=== PATIENT | female | born 1990 | race Caucasian/White ===

== ENCOUNTER 2016-07-29 16:25 | Emergency (ER) | payer MEDICAID ==
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
[2016-07-29 18:19] VITALS: BP 155/101; PULSE 78; O2SAT 98
== END 2016-07-29 18:23 | disposition home or self-care (01) ==
LOC: ED 16:25
DX: M79.1 Myalgia (principal); V49.59XD Passenger injured in collision with other motor vehicles in traffic accident, subsequent encounter
CPT/HCPCS: 99282

== ENCOUNTER 2020-01-16 09:15 | Day surgery (SDC) | payer BC ==
[~2020-01-16 09:15] MED LIST: DIPRIVAN 200 MG/20 ML IV ONE; Ketamine HCl 50 MG/ML ONE
[2020-01-16] MEDS ORDERED: Depo-Medrol 40 MG/ML IM ONE (09:16)
[2020-01-16] MEDS ORDERED: BUPIVACAINE 0.5% VIAL IJ ONE (09:16)
--- NOTE | 2020-01-16 12:10 | XRAY ---
Indication: Left hip injection. Intraoperative fluoroscopy provided for 11 seconds. Single digital spot image submitted for interpretation demonstrates needle tip projecting lateral to the left femur neck. Small amount of contrast injected for needle tip placement. Correlate with intraoperative findings/report.
--- NOTE | 2020-01-16 12:40 | XRAY ---
11 seconds fluoroscopy time in surgery for intra-articular injection of the left hip
[2020-01-16] MEDS ORDERED: Lactated Ringers 1,000 ML IV ONE (13:44)
== END 2020-01-16 11:32 | disposition home or self-care (01) ==
LOC: SDC-PAIN 09:15
PROVIDERS: ATTEND Psychiatry & Neurology Pain Medicine
DX: M16.12 Unilateral primary osteoarthritis, left hip (principal); F41.8 Other specified anxiety disorders; Z79.899 Other long term (current) drug therapy
CPT/HCPCS: 73501; 77002; 84703; J1030; J2704

== ENCOUNTER 2020-02-13 13:56 | Day surgery (SDC) | payer BC ==
[2020-02-13] MEDS ORDERED: BUPIVACAINE 0.5% VIAL IJ ONE (13:57)
[2020-02-13] MEDS ORDERED: Depo-Medrol 40 MG/ML IM ONE (13:57)
[2020-02-13] MEDS ORDERED: DIPRIVAN 200 MG/20 ML IV ONE (15:21)
[2020-02-13] MEDS ORDERED: Ketamine HCl 50 MG/ML ONE (15:21)
--- NOTE | 2020-02-13 16:41 | XRAY ---
9 seconds fluoroscopy time in surgery for left intra-articular hip injection.
--- NOTE | 2020-02-13 16:41 | XRAY ---
Indication: Left SI joint injection. Intraoperative fluoroscopy was provided for 7 seconds. 2 digital spot images submitted for interpretation demonstrates posterior needle tip projecting over the inferior left SI joint. Correlate with intraoperative findings/report.
--- NOTE | 2020-02-13 16:41 | XRAY ---
7 seconds fluoroscopy time in surgery for left SI joint injection.
--- NOTE | 2020-02-13 16:49 | XRAY ---
Indication: Right hip injection. Intraoperative fluoroscopy was provided for 9 seconds. Single digital spot image submitted for interpretation demonstrates needle tip projecting just lateral to the right femur head. Small amount of contrast injected for needle tip placement. Correlate with intraoperative findings/report.
[2020-02-13] MEDS ORDERED: Lactated Ringers 1,000 ML IV ONE (16:51)
== END 2020-02-13 15:50 | disposition home or self-care (01) ==
LOC: SDC-PAIN 13:56
PROVIDERS: ATTEND Psychiatry & Neurology Pain Medicine
DX: M46.1 Sacroiliitis, not elsewhere classified (principal); M16.12 Unilateral primary osteoarthritis, left hip; Z79.899 Other long term (current) drug therapy
CPT/HCPCS: 20610; 27096; 72020; 73501; 77002; 84703; J1030; J2704; Q9966; G0260

== ENCOUNTER 2020-07-23 10:23 | Day surgery (SDC) | payer BC, OTHER ==
[2020-07-23] MEDS ORDERED: BUPIVACAINE 0.5% VIAL IJ ONE (10:24)
[2020-07-23] MEDS ORDERED: Depo-Medrol 40 MG/ML IM ONE (10:24)
[2020-07-23] MEDS ORDERED: DIPRIVAN 200 MG/20 ML IV ONE (12:44)
--- NOTE | 2020-07-23 13:19 | XRAY ---
Indication: Left SI joint injection. Intraoperative fluoroscopy provided for 16 seconds. 2 digital spot images submitted for interpretation demonstrates posterior needle tip projecting over the inferior left SI joint. Correlate with intraoperative findings/report.
--- NOTE | 2020-07-23 13:19 | XRAY ---
Indication: Left hip injection. Intraoperative fluoroscopy provided for 18 seconds. 2 digital spot images obtained prone submitted for interpretation demonstrates needle tip just lateral to the left femur head. Small amount of contrast injected for needle tip placement. Correlate with intraoperative findings/report.
--- NOTE | 2020-07-23 13:41 | XRAY ---
18 seconds fluoroscopy time in surgery for intra-articular injection of the left hip.
--- NOTE | 2020-07-23 13:41 | XRAY ---
16 seconds fluoroscopy time in surgery for injection of the left SI joint.
[2020-07-23] MEDS ORDERED: Lactated Ringers 1,000 ML IV ONE (16:11)
== END 2020-07-23 13:10 | disposition home or self-care (01) ==
LOC: SDC-PAIN 10:23
PROVIDERS: ATTEND Psychiatry & Neurology Pain Medicine
DX: M46.1 Sacroiliitis, not elsewhere classified (principal); M16.12 Unilateral primary osteoarthritis, left hip; Z79.899 Other long term (current) drug therapy
CPT/HCPCS: 20610; 27096; 72202; 73501; 77002; 84703; J1030; J2704; Q9966; G0260

== ENCOUNTER 2020-10-22 14:49 | Day surgery (SDC) | payer OTHER ==
[2020-10-22] MEDS ORDERED: LIDOCAINE HCL 2% 100 MG/5 ML IJ ONE (14:50)
[2020-10-22] MEDS ORDERED: DIPRIVAN 200 MG/20 ML IV ONE (16:37)
[2020-10-22] MEDS ORDERED: Lactated Ringers 1,000 ML IV ONE (17:34)
--- NOTE | 2020-10-23 08:12 | XRAY ---
9 seconds fluoroscopy time in surgery for bilateral L4-S1 MBB.
== END 2020-10-22 17:08 | disposition home or self-care (01) ==
LOC: SDC-PAIN 14:49
PROVIDERS: ATTEND Psychiatry & Neurology Pain Medicine
DX: M47.816 Spondylosis without myelopathy or radiculopathy, lumbar region (principal); Z79.899 Other long term (current) drug therapy
CPT/HCPCS: 64493; 64494; 72020; 77002; 84703; J2704

== ENCOUNTER 2020-12-03 14:13 | Day surgery (SDC) | payer OTHER ==
[2020-12-03] MEDS ORDERED: BUPIVACAINE 0.5% VIAL IJ ONE (14:14)
[2020-12-03] MEDS ORDERED: Lactated Ringers 1,000 ML IV ONE (15:50)
[2020-12-03] MEDS ORDERED: Ketamine HCl 50 MG/ML ONE (15:52)
[2020-12-03] MEDS ORDERED: DIPRIVAN 200 MG/20 ML IV ONE (15:53)
--- NOTE | 2020-12-03 17:17 | XRAY ---
Indication: Bilateral L4-S1 MBB. Interpreted fluoroscopy provided for 8 seconds. Single digital spot image submitted for interpretation demonstrates posterior needle tips projecting over the expected left and right L4-S1 nerve roots. Correlate with intraoperative findings/report.
--- NOTE | 2020-12-03 17:31 | XRAY ---
8 seconds of fluoroscopy was used in surgery for a bilateral L4-S1 MBB.
== END 2020-12-03 16:20 | disposition home or self-care (01) ==
LOC: SDC-PAIN 14:13
PROVIDERS: ATTEND Psychiatry & Neurology Pain Medicine
DX: M47.816 Spondylosis without myelopathy or radiculopathy, lumbar region (principal); Z79.899 Other long term (current) drug therapy
CPT/HCPCS: 64493; 64494; 72020; 77002; 84703; J2704

== ENCOUNTER 2021-07-15 10:41 | Day surgery (SDC) | payer OTHER ==
[2021-07-15] MEDS ORDERED: Lactated Ringers 1,000 ML IV ONE (13:29)
[2021-07-15] MEDS ORDERED: DIPRIVAN 200 MG/20 ML IV ONE (13:44)
--- NOTE | 2021-07-15 14:54 | XRAY ---
Indication: Left L4-S1 RFA. Intraoperative fluoroscopy provided for 24 seconds. 3 digital spot imags submitted for interpretation demonstrates posterior needle tips projecting over the expected left L4-S1 nerve roots. Correlate with intraoperative findings/report.
--- NOTE | 2021-07-15 15:28 | XRAY ---
24 seconds fluoroscopy time in surgery for left L4-S1 RFA.
== END 2021-07-15 14:00 | disposition home or self-care (01) ==
LOC: SDC-PAIN 10:41
PROVIDERS: ATTEND Psychiatry & Neurology Pain Medicine
DX: M47.816 Spondylosis without myelopathy or radiculopathy, lumbar region (principal); Z79.899 Other long term (current) drug therapy
CPT/HCPCS: 72100; 77002; 84703; J2704

== ENCOUNTER 2021-07-22 11:56 | Day surgery (SDC) | payer OTHER ==
[2021-07-22] MEDS ORDERED: Depo-Medrol 40 MG/ML IM ONE (11:57)
[2021-07-22] MEDS ORDERED: BUPIVACAINE 0.5% VIAL IJ ONE (11:57)
[2021-07-22] MEDS ORDERED: Xylocaine 1% Vial 30 ML PF IJ ONE (11:57)
[2021-07-22] MEDS ORDERED: DIPRIVAN 200 MG/20 ML IV ONE (14:23)
[2021-07-22] MEDS ORDERED: Lactated Ringers 1,000 ML IV ONE (14:41)
--- NOTE | 2021-07-22 16:40 | XRAY ---
Indication: Right L4-S1 RFA. Intraoperative fluoroscopy provided for 26 seconds. 4 digital spot images submitted for interpretation demonstrates posterior needle tips projecting over the expected right L4-S1 nerve roots. Correlate with intraoperative findings/report.
--- NOTE | 2021-07-22 16:44 | XRAY ---
26 seconds fluoroscopy time in surgery for right L4-S1 RFA.
== END 2021-07-22 14:50 | disposition home or self-care (01) ==
LOC: SDC-PAIN 11:56
PROVIDERS: ATTEND Psychiatry & Neurology Pain Medicine
DX: M47.816 Spondylosis without myelopathy or radiculopathy, lumbar region (principal); Z79.899 Other long term (current) drug therapy
CPT/HCPCS: 64635; 64636; 72100; 77002; 84703; J1030; J2001; J2704

== ENCOUNTER 2021-09-23 11:58 | Day surgery (SDC) | payer OTHER ==
[2021-09-23] MEDS ORDERED: Depo-Medrol 40 MG/ML IM ONE (11:59)
[2021-09-23] MEDS ORDERED: Marcaine Mpf 0.5% Vial 30 Ml IJ ONE (11:59)
[2021-09-23] MEDS ORDERED: DIPRIVAN 200 MG/20 ML IV ONE (14:51)
[2021-09-23] MEDS ORDERED: Lactated Ringers 1,000 ML IV ONE (15:41)
--- NOTE | 2021-09-23 16:44 | XRAY ---
Indication: Left SI joint and left hip injection. Intraoperative fluoroscopy provided for 31 seconds. 4 digital spot images submitted for interpretation demonstrates posterior needle tip projecting over the inferior left SI joint. Second needle tip lateral to left femur neck with small amount of contrast injected for needle tip placement. Correlate with intraoperative findings/report.
--- NOTE | 2021-09-23 16:46 | XRAY ---
31 seconds of fluoroscopy was used in surgery for a left SI joint injection and a left hip intra-articular injection.
== END 2021-09-23 15:14 | disposition home or self-care (01) ==
LOC: SDC-PAIN 11:58
PROVIDERS: ATTEND Psychiatry & Neurology Pain Medicine
DX: M46.1 Sacroiliitis, not elsewhere classified (principal); M16.12 Unilateral primary osteoarthritis, left hip; Z79.899 Other long term (current) drug therapy
CPT/HCPCS: 20610; 27096; 73502; 77002; 81025; G0260; J1030; J2704; Q9966

== ENCOUNTER 2022-05-05 14:14 | Day surgery (SDC) | payer OTHER ==
[2022-05-05] MEDS ORDERED: Depo-Medrol 40 MG/ML IM ONE (14:15)
[2022-05-05] MEDS ORDERED: BUPIVACAINE 0.5% VIAL IJ ONE (14:15)
[2022-05-05] MEDS ORDERED: Lactated Ringers 1,000 ML IV ONE (16:13)
--- NOTE | 2022-05-05 17:15 | XRAY ---
Indication: Left SI joint and left hip injection. Intraoperative fluoroscopy provided for 16 seconds. 3 digital spot image obtained prone submitted for interpretation demonstrates posterior needle tip projecting over the left SI joint. Second needle tip lateral to the left femur neck with small amount of contrast injected for needle tip placement. Correlate with intraoperative findings/report.
--- NOTE | 2022-05-06 08:29 | XRAY ---
16 seconds of fluoroscopy was used in surgery for a left hip intra-articular injection and a left SI joint injection..
== END 2022-05-05 16:15 | disposition home or self-care (01) ==
LOC: SDC-PAIN 14:14
PROVIDERS: ATTEND Psychiatry & Neurology Pain Medicine
DX: M46.1 Sacroiliitis, not elsewhere classified (principal); M16.12 Unilateral primary osteoarthritis, left hip; Z79.899 Other long term (current) drug therapy
CPT/HCPCS: 01992; 20610; 27096; 73501; 77002; 81025; G0260; J1030; Q9966